=== PATIENT | female | born 1940 | race Caucasian/White ===

== ENCOUNTER 2020-08-08 21:21 | Inpatient (IN) | payer MEDICARE, MEDICAID ==
[~2020-08-08] VITALS: Ht 165.1 cm; Wt 111.9 kg
[2020-08-09 01:46] LABS: Basophils # (auto) 0 10 ^3/uL (0-0.2); Eosinophils # (auto) 0 10 ^3/uL (0-0.8); Hemoglobin 13.5 g/dL (12.2-16.2); Lymphocytes # (auto) 0.9 10 ^3/uL (0.4-5.4); Neutrophils # (auto) 8.8 10 ^3/uL (1.6-8.6); Nucleated Red Blood Cells % 0.1 %
[2020-08-09 01:47] LABS: Basophils % (auto) 0.3 % (0.0-2.0); Eosinophils % (auto) 0.1 % (0.0-7.0); Lymphocytes % (auto) 8.9 % (10.0-50.0); Mean Corpuscular Hemoglobin 27.5 pg (28.0-32.0); Mean Corpuscular Hgb Conc. 29.3 g/dL (32.0-36.0); Mean Corpuscular Volume 93.8 fL (80.0-100.0); Monocytes # (auto) 0.6 10 ^3/uL (0-1.3); Monocytes % (auto) 5.4 % (0.0-12.0); Neutrophils % (auto) 85.3 % (37.0-80.0); Platelet Count (auto) 187 10^3/uL (140-450); Red Blood Cells 4.91 10^6/uL (4.0-5.20); Red Cell Distribution Width 17.8 % (11.8-14.3); White Blood Cell 10.3 10^3/uL (4.4-10.8)
[2020-08-09 02:45] LABS: INR 1.14 (0.9-1.15); Partial Thromboplastin Time 27.3 sec (23.0-31.2)
[2020-08-09] MEDS ORDERED: InsuLIN REG 1unit/0.01ml Soln (100units/ml) ONE ×2 (03:42→22:47)
[2020-08-09] MEDS ORDERED: SODIUM BICARBONATE 8.4% INJ 50ML SYRINGE ONE ×2 (03:42→04:49)
[2020-08-09] MEDS ORDERED: SODIUM BICARBONATE 50ML VIAL 100 ML in SOD CHL 0.45% 1,000 ML IV ONE (03:45)
[2020-08-09] MEDS ORDERED: SODIUM BICARBONATE 8.4 % INJ 50ML VIAL IV ONE (04:30)
[2020-08-09] MEDS ORDERED: InsuLIN REG 1unit/0.01ml Soln (100units/ml) IV ONE (04:30)
[2020-08-09 04:32] LABS: Albumin 2.6 g/dL (3.4-5.0); Anion Gap 28 (5-15); Blood Urea Nitrogen 48 mg/dL (7-18); Calcium 9.4 mg/dL (8.5-10.1); Chloride 93 mmol/L (98-107); Sodium 125 mmol/L (136-145)
[2020-08-09 04:37] LABS: Alanine Aminotransferase 31 U/L (13-56); Alkaline Phosphatase 89 U/L (45-117); Aspartate Aminotransferase 61 U/L (15-37); Bilirubin, Total 0.5 mg/dL (0.2-1.0); GFR African American 15 mL/min; GFR Non-African American 12 mL/min; Total Protein 7.9 g/dL (6.4-8.2)
[2020-08-09 04:41] LABS: BUN/Creatinine Ratio 12.8
[2020-08-09 04:45] LABS: Carbon Dioxide 4 mmol/L (21-32); Glucose 881 mg/dL (74-106); Potassium 6.2 mmol/L (3.5-5.1)
[2020-08-09] MEDS ORDERED: ALBUTEROL SULF 2.5 MG/0.5ML(0.5%) NEB SOLN NEB ONE (05:15)
[2020-08-09] MEDS ORDERED: FUROSEMIDE 40 MG/4 ML VIAL IV ONE (05:15)
[2020-08-09] MEDS ORDERED: InsuLIN R (HUMAN) 100 UNITS in SODIUM CHL 0.9% 99 ML IV SCH ×2 (06:15→09:45)
[2020-08-09] MEDS ORDERED: DEXTROSE (50%) 50ML SYRG IV PRN (06:15)
[2020-08-09] MEDS ORDERED: INSULIN LANTUS (GLARGINE) 1 /0.01ml (100units/ml) SC ONE (06:15)
[2020-08-09] MEDS: ACCU-CHEK COMFORT CURVE STRIP VI SCH ×11 (07:35→22:34)
[2020-08-09] MEDS ORDERED: DOXYCYCLINE 100MG/250ML 250 ML IV ONE (08:00)
[2020-08-09] MEDS ORDERED: AZITHROMYCIN 500MG/ 250ML 250 ML IV ONE (08:00)
[2020-08-09] MEDS ORDERED: DexAMETHasone SOD PHOS 10MG/1ML VIAL INJ IV ONE (08:00)
[2020-08-09] MEDS ORDERED: NITROGLYCERIN 0.4 MG SL TAB SL PRN (09:15)
[2020-08-09] MEDS ORDERED: HYDROcodone-ACET 5/325MG TAB PO PRN (09:15)
[2020-08-09] MEDS ORDERED: ACETAMINOPHEN 500 MG TAB PO PRN (09:15)
[2020-08-09] MEDS ORDERED: MORPHINE SULF INJ 2 MG/ML SYRINGE 1ML IV PRN (09:15)
[2020-08-09] MEDS ORDERED: LACTATED RINGER'S 1,000 ML IV ONE (09:15)
[2020-08-09] MEDS: FAMOTIDINE 20 MG TAB PO SCH (10:00)
[2020-08-09] MEDS: DexAMETHasone SOD PHOS 10MG/1ML VIAL INJ IV SCH (10:00)
[2020-08-09] MEDS: ENOXAPARIN SOD 40 MG/0.4 ML SYRINGE SC SCH (10:00)
[2020-08-09 10:19] LABS: Potassium 5.3 mmol/L (3.5-5.1)
[2020-08-09 10:44] LABS: BUN/Creatinine Ratio 14.6; Calcium 8.5 mg/dL (8.5-10.1); Magnesium 2.2 mg/dL (1.6-2.6); Phosphorus 5.2 mg/dL (2.5-4.90)
[2020-08-09] MEDS: InsuLIN R (HUMAN) 100 UNITS in SODIUM CHL 0.9% 99 ML IV SCH ×2 (11:57→18:10)
[2020-08-09 11:59] LABS: CRP High Sensitivity 15.8 mg/dL (< 0.3)
[2020-08-09] MEDS ORDERED: ENOXAPARIN SOD 60 MG/0.6 ML SYRINGE SC ONE (12:05)
[2020-08-09] MEDS: BUDESONIDE (INHALATION) 0.5 MG/2 ML NEB NEB SCH ×2 (14:49→22:00)
[2020-08-09 20:21] LABS: Albumin 2.4 g/dL (3.4-5.0); Calcium 8.8 mg/dL (8.5-10.1); Magnesium 2.1 mg/dL (1.6-2.6); Potassium 3.5 mmol/L (3.5-5.1)
[2020-08-09 20:24] LABS: BUN/Creatinine Ratio 17.9; Bilirubin, Total 0.4 mg/dL (0.2-1.0); Total Protein 7.1 g/dL (6.4-8.2)
[2020-08-09] MEDS: SODIUM BICARBONATE 50ML VIAL 150 ML in D5W 5% 1,000 ML IV SCH (21:44)
[2020-08-09 22:10] LABS: Urine Bacteria FEW /hpf (None Seen); Urine Blood 2+ /uL (Negative); Urine Specific Gravity 1.017 (1.001-1.035); Urine WBC 43 /hpf (0 - 5)
[2020-08-09 22:20] LABS: Protein, Urine 68.9 mg/dL (0.0-11.9)
[2020-08-10] MEDS: InsuLIN R (HUMAN) 100 UNITS in SODIUM CHL 0.9% 99 ML IV SCH ×3 (00:15→13:33)
[2020-08-10] MEDS: ACCU-CHEK COMFORT CURVE STRIP VI SCH ×12 (01:30→17:43)
[2020-08-10 05:53] LABS: Basophils # (auto) 0 10 ^3/uL (0-0.2); Basophils % (auto) 0.1 % (0.0-2.0); Eosinophils # (auto) 0 10 ^3/uL (0-0.8); Hematocrit 39.2 % (36.0-46.0); Lymphocytes # (auto) 1.1 10 ^3/uL (0.4-5.4); Mean Corpuscular Hemoglobin 27.8 pg (28.0-32.0); Mean Corpuscular Hgb Conc. 33.1 g/dL (32.0-36.0); Monocytes # (auto) 0.5 10 ^3/uL (0-1.3); Monocytes % (auto) 2.6 % (0.0-12.0); Neutrophils # (auto) 17.2 10 ^3/uL (1.6-8.6); Neutrophils % (auto) 91.3 % (37.0-80.0); Platelet Count (auto) 195 10^3/uL (140-450); Red Blood Cells 4.66 10^6/uL (4.0-5.20); Red Cell Distribution Width 15.6 % (11.8-14.3); White Blood Cell 18.8 10^3/uL (4.4-10.8)
[2020-08-10 06:04] LABS: Albumin 2.3 g/dL (3.4-5.0); BUN/Creatinine Ratio 20.3; Bilirubin, Total 0.5 mg/dL (0.2-1.0); Calcium 9.1 mg/dL (8.5-10.1); Magnesium 2.1 mg/dL (1.6-2.6); Phosphorus 1.5 mg/dL (2.5-4.90); Total Protein 7.1 g/dL (6.4-8.2)
[2020-08-10] MEDS: SODIUM BICARBONATE 50ML VIAL 150 ML in D5W 5% 1,000 ML IV SCH (07:35)
[2020-08-10] MEDS: cefTRIAXone 1GM/50ML D5W 50 ML IV SCH (09:00)
[2020-08-10] MEDS: BUDESONIDE (INHALATION) 0.5 MG/2 ML NEB NEB SCH (09:55)
[2020-08-10] MEDS ORDERED: INSULIN LANTUS (GLARGINE) 1 /0.01ml (100units/ml) SC SCH (10:00)
[2020-08-10] MEDS: FAMOTIDINE 20 MG TAB PO SCH (10:00)
[2020-08-10] MEDS: DexAMETHasone SOD PHOS 10MG/1ML VIAL INJ IV SCH (11:05)
[2020-08-10] MEDS: AZITHROMYCIN 500MG/ 250ML 250 ML IV SCH (11:05)
[2020-08-10] MEDS: ENOXAPARIN SOD 40 MG/0.4 ML SYRINGE SC SCH (11:06)
[2020-08-10] MEDS ORDERED: SODIUM CHLORIDE 0.9% 1,000 ML IV ONE (14:15)
[2020-08-10] MEDS ORDERED: DEXTROSE (50%) 50ML SYRG IV PRN (15:00)
[2020-08-10] MEDS: InsuLIN REG 1unit/0.01ml Soln (100units/ml) SC SCH (17:50)
[2020-08-10] MEDS ORDERED: InsuLIN REG 1unit/0.01ml Soln (100units/ml) SC SCH (22:00)
[2020-08-11] MEDS: ACCU-CHEK COMFORT CURVE STRIP VI SCH ×4 (00:07→20:20)
[2020-08-11 06:34] LABS: Basophils # (auto) 0 10 ^3/uL (0-0.2); Eosinophils # (auto) 0 10 ^3/uL (0-0.8); Hematocrit 37.1 % (36.0-46.0); Hemoglobin 12.2 g/dL (12.2-16.2); Lymphocytes # (auto) 0.7 10 ^3/uL (0.4-5.4); Lymphocytes % (auto) 4.1 % (10.0-50.0); Mean Corpuscular Hemoglobin 27.5 pg (28.0-32.0); Mean Corpuscular Hgb Conc. 32.9 g/dL (32.0-36.0); Mean Corpuscular Volume 83.6 fL (80.0-100.0); Monocytes # (auto) 0.5 10 ^3/uL (0-1.3); Monocytes % (auto) 3.1 % (0.0-12.0); Neutrophils # (auto) 15.9 10 ^3/uL (1.6-8.6); Neutrophils % (auto) 92.8 % (37.0-80.0); Platelet Count (auto) 159 10^3/uL (140-450); Red Blood Cells 4.44 10^6/uL (4.0-5.20); Red Cell Distribution Width 15.8 % (11.8-14.3); White Blood Cell 17.1 10^3/uL (4.4-10.8)
[2020-08-11 06:35] LABS: BUN/Creatinine Ratio 29.6; Calcium 8.6 mg/dL (8.5-10.1)
[2020-08-11] MEDS: InsuLIN REG 1unit/0.01ml Soln (100units/ml) SC SCH ×3 (06:35→20:22)
[2020-08-11] MEDS: DexAMETHasone SOD PHOS 10MG/1ML VIAL INJ IV SCH (09:05)
[2020-08-11] MEDS: cefTRIAXone 1GM/50ML D5W 50 ML IV SCH (09:05)
[2020-08-11] MEDS: BUDESONIDE (INHALATION) 0.5 MG/2 ML NEB NEB SCH ×3 (09:06→22:00)
[2020-08-11] MEDS: FAMOTIDINE 20 MG TAB PO SCH (09:06)
[2020-08-11] MEDS: ENOXAPARIN SOD 40 MG/0.4 ML SYRINGE SC SCH (09:06)
[2020-08-11] MEDS: AZITHROMYCIN 500MG/ 250ML 250 ML IV SCH (09:53)
[2020-08-11] MEDS ORDERED: DEXTROSE (50%) 50ML SYRG IV PRN ×3 (13:45→19:15)
[2020-08-11] MEDS ORDERED: InsuLIN REG 1unit/0.01ml Soln (100units/ml) SC SCH ×3 (17:00→22:00)
[2020-08-11] MEDS ORDERED: REMDESIVIR 200 MG in NS 210ml LOADING DOSE ADULT IV ONE (18:00)
[2020-08-11] MEDS ORDERED: ACCU-CHEK COMFORT CURVE STRIP VI SCH (18:00)
[2020-08-11 18:15] VITALS: BP 139/74
[2020-08-11] MEDS ORDERED: InsuLIN REG 1unit/0.01ml Soln (100units/ml) IV ONE (19:15)
[2020-08-11] MEDS: MEROPENEM 500MG IVPB 50 ML IV SCH ×2 (20:16→22:27)
[2020-08-11 22:00] VITALS: BP 149/68
[2020-08-11] MEDS ORDERED: INSULIN LANTUS (GLARGINE) 1 /0.01ml (100units/ml) SC SCH (22:00)
[2020-08-11] MEDS: INSULIN LANTUS (GLARGINE) 1 /0.01ml (100units/ml) SC SCH (22:28)
[2020-08-11 23:27] VITALS: BP 100/58
[2020-08-11 23:49] VITALS: BP 152/85
[2020-08-12] VITALS: BP 152/83
[2020-08-12] MEDS: InsuLIN REG 1unit/0.01ml Soln (100units/ml) SC SCH ×6 (01:10→20:14)
[2020-08-12] MEDS: ACCU-CHEK COMFORT CURVE STRIP VI SCH ×6 (01:11→20:13)
[2020-08-12 01:55] VITALS: BP 146/85
[2020-08-12 05:00] VITALS: BP 145/99
[2020-08-12 07:32] LABS: Basophils # (auto) 0 10 ^3/uL (0-0.2); Basophils % (auto) 0.1 % (0.0-2.0); Eosinophils # (auto) 0 10 ^3/uL (0-0.8); Hematocrit 32.9 % (36.0-46.0); Hemoglobin 11.1 g/dL (12.2-16.2); Lymphocytes # (auto) 0.8 10 ^3/uL (0.4-5.4); Lymphocytes % (auto) 6.1 % (10.0-50.0); Mean Corpuscular Hemoglobin 27.7 pg (28.0-32.0); Mean Corpuscular Hgb Conc. 33.8 g/dL (32.0-36.0); Mean Corpuscular Volume 82.1 fL (80.0-100.0); Monocytes # (auto) 0.6 10 ^3/uL (0-1.3); Monocytes % (auto) 4.4 % (0.0-12.0); Neutrophils # (auto) 11.7 10 ^3/uL (1.6-8.6); Neutrophils % (auto) 89.4 % (37.0-80.0); Nucleated Red Blood Cells % 0.1 %; Platelet Count (auto) 121 10^3/uL (140-450); Red Blood Cells 4.01 10^6/uL (4.0-5.20); Red Cell Distribution Width 15.5 % (11.8-14.3); White Blood Cell 13.1 10^3/uL (4.4-10.8)
[2020-08-12 07:44] LABS: Albumin 2.4 g/dL (3.4-5.0); Calcium 8.3 mg/dL (8.5-10.1); Potassium 3.8 mmol/L (3.5-5.1)
[2020-08-12 07:48] LABS: BUN/Creatinine Ratio 34.4
[2020-08-12 07:50] LABS: Bilirubin, Total 0.4 mg/dL (0.2-1.0); Total Protein 6.5 g/dL (6.4-8.2)
[2020-08-12 08:00] VITALS: BP 127/70
[2020-08-12] MEDS: ENOXAPARIN SOD 40 MG/0.4 ML SYRINGE SC SCH (08:44)
[2020-08-12] MEDS: DexAMETHasone SOD PHOS 10MG/1ML VIAL INJ IV SCH (08:44)
[2020-08-12] MEDS: FAMOTIDINE 20 MG TAB PO SCH (08:44)
[2020-08-12] MEDS: INSULIN LANTUS (GLARGINE) 1 /0.01ml (100units/ml) SC SCH ×2 (08:45→21:57)
[2020-08-12] MEDS: MEROPENEM 500MG IVPB 50 ML IV SCH (12:08)
[2020-08-12] MEDS: BUDESONIDE (INHALATION) 180 MCG IH IN SCH ×2 (12:08→23:13)
[2020-08-12] MEDS: REMDESIVIR 100 MG in SODIUM CHL 0.9% 250 ML IV SCH (15:39)
[2020-08-12 15:48] VITALS: BP 134/77
[2020-08-12] MEDS: MORPHINE SULF INJ 2 MG/ML SYRINGE 1ML IV PRN (20:15)
[2020-08-12 22:00] VITALS: BP 134/77
[2020-08-12] MEDS ORDERED: MEROPENEM 500MG IVPB 50 ML IV SCH (22:00)
[2020-08-13] MEDS: ACCU-CHEK COMFORT CURVE STRIP VI SCH ×6 (00:12→20:02)
[2020-08-13] MEDS: InsuLIN REG 1unit/0.01ml Soln (100units/ml) SC SCH ×6 (00:16→20:01)
[2020-08-13 00:22] VITALS: BP 152/75
[2020-08-13] MEDS: MORPHINE SULF INJ 2 MG/ML SYRINGE 1ML IV PRN (01:22)
[2020-08-13 04:59] VITALS: BP 149/62
[2020-08-13 07:59] LABS: Albumin 2.3 g/dL (3.4-5.0); BUN/Creatinine Ratio 35.9; Bilirubin, Total 0.4 mg/dL (0.2-1.0); Calcium 8.7 mg/dL (8.5-10.1); Total Protein 6.5 g/dL (6.4-8.2)
[2020-08-13 08:00] VITALS: BP 137/84
[2020-08-13] MEDS: BUDESONIDE (INHALATION) 180 MCG IH IN SCH ×2 (08:12→19:00)
[2020-08-13] MEDS: MEROPENEM 1GM IVPB 100 ML IV SCH ×2 (08:13→22:43)
[2020-08-13] MEDS: DexAMETHasone SOD PHOS 10MG/1ML VIAL INJ IV SCH (08:13)
[2020-08-13] MEDS: ENOXAPARIN SOD 40 MG/0.4 ML SYRINGE SC SCH (08:13)
[2020-08-13] MEDS: FAMOTIDINE 20 MG TAB PO SCH (08:13)
[2020-08-13] MEDS: INSULIN LANTUS (GLARGINE) 1 /0.01ml (100units/ml) SC SCH ×2 (08:23→22:44)
[2020-08-13] MEDS ORDERED: EXEM25TA PO ×2 (12:57→23:44)
[2020-08-13] MEDS: REMDESIVIR 100 MG in SODIUM CHL 0.9% 250 ML IV SCH (15:38)
[2020-08-13 16:00] VITALS: BP 138/61
[2020-08-14] VITALS: BP 174/68
[2020-08-14] MEDS: ACCU-CHEK COMFORT CURVE STRIP VI SCH ×6 (00:18→19:57)
[2020-08-14] MEDS: InsuLIN REG 1unit/0.01ml Soln (100units/ml) SC SCH ×6 (00:20→19:59)
[2020-08-14 07:50] LABS: Albumin 2.4 g/dL (3.4-5.0); BUN/Creatinine Ratio 34.6; Calcium 8.5 mg/dL (8.5-10.1)
[2020-08-14] MEDS: BUDESONIDE (INHALATION) 180 MCG IH IN SCH ×2 (07:51→20:46)
[2020-08-14] MEDS: INSULIN LANTUS (GLARGINE) 1 /0.01ml (100units/ml) SC SCH ×2 (07:51→22:11)
[2020-08-14] MEDS: DexAMETHasone SOD PHOS 10MG/1ML VIAL INJ IV SCH (07:52)
[2020-08-14 07:53] LABS: Bilirubin, Total 0.4 mg/dL (0.2-1.0); Total Protein 6.6 g/dL (6.4-8.2)
[2020-08-14] MEDS: FAMOTIDINE 20 MG TAB PO SCH (07:53)
[2020-08-14] MEDS: ENOXAPARIN SOD 40 MG/0.4 ML SYRINGE SC SCH (07:53)
[2020-08-14] MEDS: MEROPENEM 1GM IVPB 100 ML IV SCH ×2 (07:53→21:06)
[2020-08-14 08:00] VITALS: BP 180/83
[2020-08-14] MEDS ORDERED: ATOR40TA52 PO (08:36)
[2020-08-14] MEDS ORDERED: LEV50T PO (08:37)
[2020-08-14] MEDS ORDERED: FLUO-125 PO (08:37)
[2020-08-14] MEDS ORDERED: ONDA-144 PO (08:37)
[2020-08-14] MEDS ORDERED: ENAL2.5T7 PO (08:37)
[2020-08-14] MEDS ORDERED: ASPI-543 PO (08:37)
[2020-08-14] MEDS ORDERED: ENALAPRIL MALEATE 10 MG TAB PO SCH (10:00)
[2020-08-14] MEDS: FLUoxetine HCL 20 MG CAP PO SCH (11:53)
[2020-08-14 12:13] VITALS: BP 141/57
[2020-08-14 16:00] VITALS: BP 140/85
[2020-08-14] MEDS: REMDESIVIR 100 MG in SODIUM CHL 0.9% 250 ML IV SCH (16:00)
[2020-08-14] MEDS ORDERED: LEVOTHYROXINE SODIUM 50 MCG TAB PO ONE (17:30)
[2020-08-14] MEDS: hydrALAZINE HCL 20 MG/ML VL IV PRN (23:11)
[2020-08-15] VITALS: BP 165/84
[2020-08-15] MEDS: ACCU-CHEK COMFORT CURVE STRIP VI SCH ×7 (00:09→23:53)
[2020-08-15] MEDS: InsuLIN REG 1unit/0.01ml Soln (100units/ml) SC SCH ×7 (00:25→23:56)
[2020-08-15] MEDS: BUDESONIDE (INHALATION) 180 MCG IH IN SCH ×2 (05:50→20:20)
[2020-08-15] MEDS: LEVOTHYROXINE SODIUM 50 MCG TAB PO SCH (06:30)
[2020-08-15 06:48] LABS: Hematocrit 41.2 % (36.0-46.0); Hemoglobin 13.6 g/dL (12.2-16.2); Mean Corpuscular Hemoglobin 27.2 pg (28.0-32.0); Mean Corpuscular Volume 82.4 fL (80.0-100.0); Platelet Count (auto) 114 10^3/uL (140-450); White Blood Cell 11.5 10^3/uL (4.4-10.8)
[2020-08-15 06:54] LABS: Basophils % (manual) 0 (0.0-2.0); Blast Cells 0; Eosinophils % (manual) 0 (0-7); Myelocytes % 0; Promyelocytes % 0; Reactive Lymphocytes 0
[2020-08-15 07:14] LABS: Potassium 3.8 mmol/L (3.5-5.1)
[2020-08-15 07:25] LABS: BUN/Creatinine Ratio 33.3; Bilirubin, Total 0.4 mg/dL (0.2-1.0); Calcium 8.9 mg/dL (8.5-10.1); Total Protein 6.1 g/dL (6.4-8.2)
[2020-08-15 07:50] LABS: Band Neutrophils % (manual) 1; Lymphocytes % (manual) 19 (10.0-50.0); Metamyelocytes % 1; Monocytes % (manual) 8 (0-12)
[2020-08-15 08:00] VITALS: BP 162/82
[2020-08-15] MEDS: DexAMETHasone SOD PHOS 10MG/1ML VIAL INJ IV SCH (08:31)
[2020-08-15] MEDS: ENOXAPARIN SOD 40 MG/0.4 ML SYRINGE SC SCH (08:32)
[2020-08-15] MEDS: FAMOTIDINE 20 MG TAB PO SCH (08:32)
[2020-08-15] MEDS: hydrALAZINE HCL 20 MG/ML VL IV PRN (08:32)
[2020-08-15] MEDS: FLUoxetine HCL 20 MG CAP PO SCH (08:33)
[2020-08-15] MEDS: amLODIPine BESYLATE 5 MG TAB PO SCH (08:33)
[2020-08-15] MEDS: MEROPENEM 1GM IVPB 100 ML IV SCH ×2 (11:08→21:35)
[2020-08-15] MEDS: INSULIN LANTUS (GLARGINE) 1 /0.01ml (100units/ml) SC SCH ×2 (11:14→22:04)
[2020-08-15 13:00] VITALS: BP 116/82
[2020-08-15] MEDS: REMDESIVIR 100 MG in SODIUM CHL 0.9% 250 ML IV SCH (15:40)
[2020-08-15 16:00] VITALS: BP 141/71
[2020-08-15] MEDS ORDERED: ERGOCALCIFEROL 50,000 UNIT(1.25MG) CAP PO SCH ×2 (16:00→20:00)
[2020-08-16] VITALS: BP 125/72
[2020-08-16] MEDS: InsuLIN REG 1unit/0.01ml Soln (100units/ml) SC SCH ×3 (04:10→12:40)
[2020-08-16] MEDS: ACCU-CHEK COMFORT CURVE STRIP VI SCH ×4 (04:10→17:35)
[2020-08-16] MEDS: LEVOTHYROXINE SODIUM 50 MCG TAB PO SCH (06:38)
[2020-08-16] MEDS: BUDESONIDE (INHALATION) 180 MCG IH IN SCH (07:46)
[2020-08-16 08:00] VITALS: BP 155/80
[2020-08-16] MEDS: DexAMETHasone SOD PHOS 10MG/1ML VIAL INJ IV SCH (09:03)
[2020-08-16] MEDS: FLUoxetine HCL 20 MG CAP PO SCH (09:04)
[2020-08-16] MEDS: amLODIPine BESYLATE 5 MG TAB PO SCH (09:04)
[2020-08-16] MEDS: ENOXAPARIN SOD 40 MG/0.4 ML SYRINGE SC SCH (09:05)
[2020-08-16] MEDS: FAMOTIDINE 20 MG TAB PO SCH (09:05)
[2020-08-16] MEDS: MEROPENEM 1GM IVPB 100 ML IV SCH (09:05)
[2020-08-16] MEDS: INSULIN LANTUS (GLARGINE) 1 /0.01ml (100units/ml) SC SCH (10:00)
[2020-08-16] MEDS ORDERED: ERTAPENEM SOD INJ 1 GM in SODIUM CHL 0.9% 50 ML IV ONE (13:00)
[2020-08-16 16:00] VITALS: BP 98/75
[2020-08-16 16:19] VITALS: BP 98/75
== END 2020-08-16 19:07 | disposition home health service (06) | DRG 871 ==
LOC: EDBD 21:21 → ER 21:26 → OVERFLOW 21:27 → TELE-EAST 08-11 17:56
PROVIDERS: ADMIT Nurse Practitioner Acute Care; ATTEND Internal Medicine
PROC: XW033E5 Introduction of Remdesivir Anti-infective into Peripheral Vein, Percutaneous Approach, New Technology Group 5 (ICD-10-PCS; principal; 2020-08-11)
PROC: XW13325 Transfusion of Convalescent Plasma (Nonautologous) into Peripheral Vein, Percutaneous Approach, New Technology Group 5 (ICD-10-PCS; 2020-08-11)
DX: A41.59 Other Gram-negative sepsis (principal); U07.1 COVID-19; J96.01 Acute respiratory failure with hypoxia; E11.10 Type 2 diabetes mellitus with ketoacidosis without coma; J12.89 Other viral pneumonia; N17.0 Acute kidney failure with tubular necrosis; D68.59 Other primary thrombophilia; N39.0 Urinary tract infection, site not specified; Z16.12 Extended spectrum beta lactamase (ESBL) resistance; Z68.41 Body mass index [BMI] 40.0-44.9, adult; G93.40 Encephalopathy, unspecified; E87.5 Hyperkalemia; E66.01 Morbid (severe) obesity due to excess calories; E88.09 Other disorders of plasma-protein metabolism, not elsewhere classified; E11.21 Type 2 diabetes mellitus with diabetic nephropathy; E11.22 Type 2 diabetes mellitus with diabetic chronic kidney disease; B96.1 Klebsiella pneumoniae [K. pneumoniae] as the cause of diseases classified elsewhere; Z88.0 Allergy status to penicillin; E55.9 Vitamin D deficiency, unspecified; N18.30 Chronic kidney disease, stage 3 unspecified; Z79.4 Long term (current) use of insulin; Z85.3 Personal history of malignant neoplasm of breast; Z90.10 Acquired absence of unspecified breast and nipple; Z92.21 Personal history of antineoplastic chemotherapy
CPT/HCPCS: 36415; 36600; 51702; 71045; 80048; 80053; 80061; 81001; 82306; 82570; 82728; 82805; 82962; 83036; 83615; 83735; 83880; 84100; 84156; 84443; 84484; 85007; 85025; 85027; 85379; 85610; 85730; 86141; 86850; 86900; 86901; 87040; 87086; 87088; 87186; 87426; 87804; 93005; 93970; 94640; 96365; 96367; 96368; 96372; 96375; 99291; G0378; J0696; J1100; J1335; J1815; J2185; J3490

== ENCOUNTER 2021-04-30 09:37 | Inpatient (IN) | payer MEDICARE, MEDICAID ==
[~2021-04-30] VITALS: Ht 165.1 cm; Wt 101.7 kg
[~2021-04-30 09:37] MED LIST: ASPI-543 PO; ATOR40TA52 PO; ENAL2.5T7 PO; EXEM25TA PO; FLUO-125 PO; LEV50T PO; ONDA-144 PO
[2021-04-30] MEDS ORDERED: ACETAMINOPHEN 325 MG TAB PO ONE (13:00)
[2021-04-30 15:14] LABS: Basophils # (auto) 0.1 10 ^3/uL (0-0.2); Eosinophils # (auto) 0.1 10 ^3/uL (0-0.8); Monocytes # (auto) 0.8 10 ^3/uL (0-1.3); Neutrophils # (auto) 6.4 10 ^3/uL (1.6-8.6); Nucleated Red Blood Cells % 0.1 %
[2021-04-30 15:16] LABS: Basophils % (auto) 0.6 % (0.0-2.0); Eosinophils % (auto) 0.8 % (0.0-7.0); Hematocrit 40.9 % (36.0-46.0); Hemoglobin 13.4 g/dL (12.2-16.2); Lymphocytes # (auto) 3.4 10 ^3/uL (0.4-5.4); Lymphocytes % (auto) 31.2 % (10.0-50.0); Mean Corpuscular Hemoglobin 26.3 pg (28.0-32.0); Mean Corpuscular Hgb Conc. 32.7 g/dL (32.0-36.0); Mean Corpuscular Volume 80.6 fL (80.0-100.0); Monocytes % (auto) 7.5 % (0.0-12.0); Neutrophils % (auto) 59.9 % (37.0-80.0); Red Blood Cells 5.08 10^6/uL (4.0-5.20); Red Cell Distribution Width 14.8 % (11.8-14.3); White Blood Cell 10.7 10^3/uL (4.4-10.8)
[2021-04-30 15:48] LABS: Calcium 10.7 mg/dL (8.5-10.1); Potassium 3.9 mmol/L (3.5-5.1)
[2021-04-30 15:53] LABS: BUN/Creatinine Ratio 14.3; Bilirubin, Total 1.1 mg/dL (0.2-1.0); Total Protein 7.5 g/dL (6.4-8.2)
[2021-04-30 20:35] LABS: Urine Bacteria FEW /hpf (None Seen); Urine Blood 3+ /uL (Negative); Urine Budding Yeast MODERATE /hpf (None Seen); Urine Hyaline Cast MOD /lpf (0 - 2); Urine Mucus FEW (None Seen); Urine Specific Gravity 1.021 (1.001-1.035); Urine WBC 520 /hpf (0 - 5); Urine WBC Clumps PRESENT /hpf (None Seen)
[2021-05-01] MEDS ORDERED: HALOPERIDOL LACTATE 5 MG/ML INJ VIAL ONE (05:27)
[2021-05-01] MEDS ORDERED: HALOPERIDOL LACTATE 5 MG/ML INJ VIAL IM ONE (05:30)
[2021-05-01] MEDS ORDERED: cefTRIAXone 1GM/50ML D5W 50 ML IV ONE ×2 (09:15→15:00)
[2021-05-01] MEDS ORDERED: SODIUM CHLORIDE 0.9% 1,000 ML IV ONE (09:15)
[2021-05-01] MEDS ORDERED: ENALAPRIL MALEATE 10 MG TAB PO ONE (12:45)
[2021-05-01] MEDS ORDERED: HYDROcodone-ACET 5/325MG TAB PO PRN (15:00)
[2021-05-01] MEDS ORDERED: MORPHINE SULFATE INJECTION 2 MG/ML SYRG IV PRN (15:00)
[2021-05-01] MEDS ORDERED: ENOXAPARIN SOD 40 MG/0.4 ML SYRINGE SC ONE (15:00)
[2021-05-01] MEDS ORDERED: amLODIPine BESYLATE 5 MG TAB PO ONE (15:00)
[2021-05-01] MEDS ORDERED: hydrALAZINE HCL 20 MG/ML VL IV PRN (15:00)
[2021-05-01] MEDS ORDERED: LEVOTHYROXINE SODIUM 50 MCG TAB PO ONE (15:00)
[2021-05-01] MEDS ORDERED: DEXTROSE (50%) 50ML SYRG IV PRN (15:00)
[2021-05-01] MEDS ORDERED: ONDANSETRON HCL 4 MG/2 ML VIAL IV PRN (15:00)
[2021-05-01] MEDS: ACCU-CHEK COMFORT CURVE STRIP VI SCH (19:30)
[2021-05-01] MEDS: InsuLIN REG 1unit/0.01ml Soln (100units/ml) SC SCH (19:33)
[2021-05-01 23:50] VITALS: BP 139/86
[2021-05-02] MEDS: ACCU-CHEK COMFORT CURVE STRIP VI SCH ×5 (00:23→23:57)
[2021-05-02] MEDS: InsuLIN REG 1unit/0.01ml Soln (100units/ml) SC SCH ×5 (00:24→23:55)
[2021-05-02] MEDS ORDERED: PNEUMOCOCCAL VACC POLYS 25 MCG/0.5 ML VIAL IM ONE (01:15)
[2021-05-02 05:00] VITALS: BP 150/44
[2021-05-02 05:34] LABS: Monocytes # (auto) 0.7 10 ^3/uL (0-1.3); White Blood Cell 9.9 10^3/uL (4.4-10.8)
[2021-05-02 05:37] LABS: Basophils # (auto) 0 10 ^3/uL (0-0.2); Basophils % (auto) 0.4 % (0.0-2.0); Eosinophils # (auto) 0.1 10 ^3/uL (0-0.8); Eosinophils % (auto) 1.4 % (0.0-7.0); Hematocrit 38.1 % (36.0-46.0); Hemoglobin 12.8 g/dL (12.2-16.2); Lymphocytes # (auto) 3.2 10 ^3/uL (0.4-5.4); Lymphocytes % (auto) 32.8 % (10.0-50.0); Mean Corpuscular Hemoglobin 27.1 pg (28.0-32.0); Mean Corpuscular Hgb Conc. 33.6 g/dL (32.0-36.0); Mean Corpuscular Volume 80.7 fL (80.0-100.0); Monocytes % (auto) 6.6 % (0.0-12.0); Neutrophils # (auto) 5.8 10 ^3/uL (1.6-8.6); Neutrophils % (auto) 58.8 % (37.0-80.0); Red Blood Cells 4.73 10^6/uL (4.0-5.20)
[2021-05-02 05:58] LABS: BUN/Creatinine Ratio 18.5; Potassium 3.7 mmol/L (3.5-5.1)
[2021-05-02] MEDS ORDERED: LEVOTHYROXINE SODIUM 50 MCG TAB PO SCH (07:00)
[2021-05-02 09:00] VITALS: BP 147/63
[2021-05-02] MEDS: cefTRIAXone 1GM/50ML D5W 50 ML IV SCH (09:46)
[2021-05-02] MEDS: amLODIPine BESYLATE 5 MG TAB PO SCH (09:47)
[2021-05-02] MEDS: FLUoxetine HCL 20 MG CAP PO SCH (09:47)
[2021-05-02] MEDS ORDERED: LEVOTHYROXINE SODIUM 25 MCG TAB PO ONE (10:00)
[2021-05-02 13:00] VITALS: BP 119/86
[2021-05-02 17:00] VITALS: BP 125/65
[2021-05-02] MEDS: ENOXAPARIN SOD 40 MG/0.4 ML SYRINGE SC SCH (19:24)
[2021-05-02] MEDS: SODIUM CHLORIDE 0.9% 1,000 ML IV SCH (23:47)
[2021-05-03 05:00] VITALS: BP 130/64
[2021-05-03 05:06] LABS: BUN/Creatinine Ratio 17.8; Calcium 9.9 mg/dL (8.5-10.1); Potassium 3.6 mmol/L (3.5-5.1)
[2021-05-03] MEDS: SODIUM CHLORIDE 0.9% 1,000 ML IV SCH ×2 (05:11→20:20)
[2021-05-03] MEDS: InsuLIN REG 1unit/0.01ml Soln (100units/ml) SC SCH ×3 (06:03→17:42)
[2021-05-03] MEDS: ACCU-CHEK COMFORT CURVE STRIP VI SCH ×3 (06:06→17:41)
[2021-05-03 06:58] LABS: Basophils # (auto) 0.1 10 ^3/uL (0-0.2); Eosinophils # (auto) 0.2 10 ^3/uL (0-0.8); Hematocrit 38.5 % (36.0-46.0); Hemoglobin 12.6 g/dL (12.2-16.2); Lymphocytes # (auto) 3.6 10 ^3/uL (0.4-5.4); Mean Corpuscular Hgb Conc. 32.8 g/dL (32.0-36.0); Monocytes # (auto) 0.6 10 ^3/uL (0-1.3); Monocytes % (auto) 6.1 % (0.0-12.0)
[2021-05-03 06:59] LABS: Basophils % (auto) 0.5 % (0.0-2.0); Eosinophils % (auto) 1.5 % (0.0-7.0); Lymphocytes % (auto) 35.9 % (10.0-50.0); Mean Corpuscular Hemoglobin 26.4 pg (28.0-32.0); Mean Corpuscular Volume 80.6 fL (80.0-100.0); Neutrophils # (auto) 5.7 10 ^3/uL (1.6-8.6); Red Blood Cells 4.78 10^6/uL (4.0-5.20); Red Cell Distribution Width 14.7 % (11.8-14.3); White Blood Cell 10.1 10^3/uL (4.4-10.8)
[2021-05-03] MEDS ORDERED: LEVOTHYROXINE SODIUM 50 MCG TAB PO SCH (07:00)
[2021-05-03 09:00] VITALS: BP 123/61
[2021-05-03] MEDS: cefTRIAXone 1GM/50ML D5W 50 ML IV SCH (09:47)
[2021-05-03] MEDS: LEVOTHYROXINE SODIUM 50 MCG TAB PO SCH (09:47)
[2021-05-03] MEDS: amLODIPine BESYLATE 5 MG TAB PO SCH (09:48)
[2021-05-03] MEDS: ENOXAPARIN SOD 40 MG/0.4 ML SYRINGE SC SCH (09:48)
[2021-05-03] MEDS: FLUoxetine HCL 20 MG CAP PO SCH (09:48)
[2021-05-03 13:00] VITALS: BP 147/64
[2021-05-03 16:31] VITALS: BP 103/51
[2021-05-03 20:00] VITALS: BP 150/79
[2021-05-03 22:00] VITALS: BP 150/79
[2021-05-04] MEDS: ACCU-CHEK COMFORT CURVE STRIP VI SCH ×3 (00:01→15:21)
[2021-05-04] MEDS: InsuLIN REG 1unit/0.01ml Soln (100units/ml) SC SCH ×3 (00:03→15:28)
[2021-05-04 05:00] VITALS: BP 136/59
[2021-05-04] MEDS: LEVOTHYROXINE SODIUM 50 MCG TAB PO SCH (06:16)
[2021-05-04 08:00] VITALS: BP 141/75
[2021-05-04] MEDS: amLODIPine BESYLATE 5 MG TAB PO SCH (10:06)
[2021-05-04] MEDS: cefTRIAXone 1GM/50ML D5W 50 ML IV SCH (10:06)
[2021-05-04] MEDS: FLUoxetine HCL 20 MG CAP PO SCH (10:06)
[2021-05-04] MEDS: ENOXAPARIN SOD 40 MG/0.4 ML SYRINGE SC SCH (10:07)
[2021-05-04 12:00] VITALS: BP 142/86
[2021-05-04 14:27] VITALS: BP 141/75
[2021-05-04] MEDS: SODIUM CHLORIDE 0.9% 1,000 ML IV SCH (15:35)
[2021-05-04 16:00] VITALS: BP 142/71
== END 2021-05-04 18:11 | disposition home or self-care (01) | DRG 872 ==
LOC: ER 09:37 → EDBD 09:37 → OVERFLOW 05-01 14:48 → CENTRAL 05-01 23:33
PROVIDERS: ADMIT Internal Medicine; ATTEND Internal Medicine
DX: A41.51 Sepsis due to Escherichia coli [E. coli] (principal); N39.0 Urinary tract infection, site not specified; C79.51 Secondary malignant neoplasm of bone; G89.3 Neoplasm related pain (acute) (chronic); C50.919 Malignant neoplasm of unspecified site of unspecified female breast; Z20.822 Contact with and (suspected) exposure to COVID-19; E66.9 Obesity, unspecified; E03.9 Hypothyroidism, unspecified; E11.22 Type 2 diabetes mellitus with diabetic chronic kidney disease; E78.5 Hyperlipidemia, unspecified; I12.9 Hypertensive chronic kidney disease with stage 1 through stage 4 chronic kidney disease, or unspecified chronic kidney disease; M16.0 Bilateral primary osteoarthritis of hip; N18.30 Chronic kidney disease, stage 3 unspecified; Z79.811 Long term (current) use of aromatase inhibitors; Z85.3 Personal history of malignant neoplasm of breast; Z86.73 Personal history of transient ischemic attack (TIA), and cerebral infarction without residual deficits; Z90.12 Acquired absence of left breast and nipple; Z90.710 Acquired absence of both cervix and uterus; Z92.3 Personal history of irradiation; Z88.0 Allergy status to penicillin; Z90.49 Acquired absence of other specified parts of digestive tract; Z68.36 Body mass index [BMI] 36.0-36.9, adult
CPT/HCPCS: 36415; 71045; 72192; 73502; 78306; 80048; 80053; 81001; 82962; 83036; 84443; 85025; 86300; 87081; 87086; 87088; 87186; 87426; 93970; 96365; 96372; 97110; 97530; G0378; J0696; J1815